=== PATIENT | male | born 1995 | race Caucasian/White ===

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

== ENCOUNTER → 2017-10-18 | Outpatient (CLI) | payer OTHER | LOC: FIMAGING 16:26 | PROVIDERS: ATTEND Family Medicine | DX: M62.830 Muscle spasm of back (principal) ==

== ENCOUNTER → 2017-10-20 | Outpatient (CLI) | payer OTHER | LOC: FIMAGING 15:36 | PROVIDERS: ATTEND Family Medicine | DX: M54.5 Low back pain (principal) ==